=== PATIENT | female | born 1990 | race Hispanic/Latino ===

== ENCOUNTER 2018-04-27 18:07 | Emergency (ER) | payer OTHER ==
[2018-04-27 18:40] VITALS: RESP 18
[2018-04-27] MEDS: Sodium Chloride 0.9% 1,000 ML IV STA (20:06)
[2018-04-27 20:20] LABS: BASO % 0.2 % (0.0-2.0); EOS # 0.1 K/uL (0.0-0.7); LYMPH # 0.3 K/uL (1.0-4.3); LYMPH % 3.8 % (20.0-40.0); MEAN CORPUSCULAR HEMOGLOBIN 31.2 pg (27.0-31.0); MEAN CORPUSCULAR HGB CONC 33.5 g/dL (33.0-37.0); MEAN PLATELET VOLUME 9.4 fl (7.2-11.7); MONO # 0.3 K/uL (0.0-0.8); NEUT # 8.4 K/uL (1.8-7.0); PLATELET COUNT 198 K/uL (130-400); RBC 4.82 Mil/uL (3.80-5.20); RED CELL DISTRIBUTION WIDTH 12.6 % (11.5-14.5); WHITE BLOOD COUNT 9.1 K/uL (4.8-10.8)
[2018-04-27 20:41] LABS: ALB/GLOB RATIO 1.3 (1.0-2.1); ALBUMIN 4.5 g/dL (3.5-5.0); ALT/SGPT 12 U/L (9-52); AST/SGOT 28 U/L (14-36); BLOOD UREA NITROGEN 14 mg/dl (7-17); CALCIUM 9.4 mg/dL (8.4-10.2); GFR NON-AFRICAN AMERICAN > 60; LIPASE 104 U/L (23-300)
--- NOTE | 2018-04-27 21:14 | ED PDOC ---
HPI: Abdomen Time Seen by Provider: 04/27/18 19:19 Chief Complaint (Nursing): Abdominal Pain Chief Complaint (Provider): Abdominal Pain History Per: Patient History/Exam Limitations: no limitations Onset/Duration Of Symptoms: Hrs Current Symptoms Are (Timing): Still Present Additional Complaint(s): 27 y/o female with no significant PMHx presents to the ED for evaluation of vomiting and diarrhea since 7 AM this morning. Patient describes vomiting as yellow/green in color and is non-bloody. Patient notes last episode of vomiting was at 3:30 PM today and is associated with multiple episodes of watery, non- bloody diarrhea, severe abdominal cramping, chills, malaise, fatigue and body aches. Patient reports her boyfriend is sick with the same symptoms. However further states that symptoms are not as strong and that he is able to tolerate fluids. Otherwise, patient denies any recent travel or antibiotic use. PMD: no provider Past Medical History Reviewed: Historical Data, Nursing Documentation, Vital Signs Vital Signs: Last Vital Signs Temp 100.4 F H 04/27/18 18:37 Pulse 116 H 04/27/18 18:37 Resp 18 04/27/18 18:37 BP 116/73 04/27/18 18:37 Pulse Ox 99 04/27/18 18:37 - Medical History PMH: No Chronic Diseases - Surgical History Other surgeries: Nasal Septum - Family History Family History: States: No Known Family Hx - Social History Current smoker - smoking cessation education provided: No - Home Medications Home Medications: Ambulatory Orders Medication Instructions Recorded Dicyclomine [Bentyl] 20 mg PO QID PRN #20 tab 04/27/18 Ondansetron ODT [Zofran ODT] 1 odt PO Q6 PRN #20 odt 04/27/18 - Allergies Allergies/Adverse Reactions: Allergies Allergy/AdvReac Type Severity Reaction Status Date / Time No Known Allergies Allergy Verified 04/27/18 18:40 Review of Systems ROS Statement: Except As Marked, All Systems Reviewed And Found Negative (as per HPI) Constitutional: Positive for: Chills, Malaise, Other (fatigue and body aches) Gastrointestinal: Positive for: Vomiting, Abdominal Pain, Diarrhea Physical Exam - Reviewed Nursing Documentation Reviewed: Yes Vital Signs Reviewed: Yes - Physical Exam Appears: Positive for: In Acute Distress (tired and in somewhat painful distress) Head Exam: Positive for: ATRAUMATIC, NORMOCEPHALIC Skin: Positive for: Warm, Dry Eye Exam: Positive for: EOMI, PERRL ENT: Positive for: Other (tachy mucous membranes) Neck: Positive for: Painless ROM, Supple Cardiovascular/Chest: Positive for: Regular Rate, Rhythm. Negative for: Murmur Respiratory: Positive for: Normal Breath Sounds. Negative for: Respiratory Distress Gastrointestinal/Abdominal: Positive for: Soft, Tenderness (diffuse tenderness). Negative for: Mass, Guarding, Rebound Back: Positive for: Normal Inspection. Negative for: Decreased ROM Extremity: Positive for: Normal ROM. Negative for: Deformity Lymphatic: Negative for: Adenopathy Neurologic/Psych: Positive for: Alert. Negative for: Motor/Sensory Deficits - Laboratory Results Result Diagrams: 04/27/18 20:10 04/27/18 20:10 Lab Results: Total Bilirubin 0.8 mg/dl (0.2-1.3) 04/27/18 20:10 AST 28 U/L (14-36) 04/27/18 20:10 ALT 12 U/L (9-52) 04/27/18 20:10 Alkaline Phosphatase 59 U/L (38-126) 04/27/18 20:10 Total Protein 8.1 G/DL (6.3-8.2) 04/27/18 20:10 Albumin 4.5 g/dL (3.5-5.0) 04/27/18 20:10 Globulin 3.5 gm/dL (2.2-3.9) 04/27/18 20:10 Albumin/Globulin Ratio 1.3 (1.0-2.1) 04/27/18 20:10 Lipase 104 U/L (23-300) 04/27/18 20:10 - ECG O2 Sat by Pulse Oximetry: 99 (RA) Pulse Ox Interpretation: Normal Medical Decision Making Medical Decision Making: Time: 1930 Impression: vomiting and diarrhea Differentials include but not limited to dehydration, electrolyte abnormality and gastroentertitis. Plan: -- CMP -- Lipase -- Magnesium -- Phosphorus -- ED Urine Dipstick -- ED Urine -- CBC with Differentials -- Bentyl 20 mg PO -- Dextrose 5%-0.9% NS IV 100 mls/hr -- Sodium Chloride IV 1000 mls/hr -- Toradol 15 mg IVP -- Zofran Inj 8 mg IV -- IV Insertion Labs demonstrate no emergently significant abnormalities Udip with ketones 10p Pt feeling better, no episodes of vomiting in ER, and tolerated fluid PO. DW pt findings and plan of care. Scribe Attestation: Documented by Edwin Ann, acting as a scribe for Lisa De Souza MD. Provider Scribe Attestation: All medical record entries made by the Scribe were at my direction and personally dictated by me. I have reviewed the chart and agree that the record accurately reflects my personal performance of the history, physical exam, medical decision making, and the department course for this patient. I have also personally directed, reviewed, and agree with the discharge instructions and disposition. Disposition - Clinical Impression Clinical Impression: Vomiting and diarrhea, Dehydration Counseled Patient/Family Regarding: Studies Performed, Diagnosis - Disposition Referrals: [facility] [Outside] Disposition: Routine/Home Disposition Time: 22:10 Condition: IMPROVED Additional Instructions: DRINK PLENTY OF HYDRATING FLUIDS AND REST. START BLAND DIET TOMORROW MORNING. FOLLOWUP WITH YOUR PMD OR [facility] IN 24-48 HOURS FOR REEVALUATION. REBECCA ROSALES, thank you for letting us take care of you today. Your provider was Lisa De Souza MD and you were treated for vomiting and diarrhea. The emergency medical care you received today was directed at your acute symptoms. If you were prescribed any medication, please fill it and take as directed. It may take several days for your symptoms to resolve. Return to the Emergency Department if your symptoms worsen, do not improve, or if you have any other problems. Please contact your doctor or call one of the physicians/clinics you have been referred to that are listed on the Patient Visit Information form that is inc luded in your discharge packet. Bring any paperwork you were given at discharge with you along with any medications you are taking to your follow up visit. Our treatment cannot replace ongoing medical care by a primary care provider outside of the emergency department. Thank you for allowing the [facility] team to be part of your care today. If you had a blood, urine, or wound culture: It will take several days for the results, if any change in treatment is needed we will contact you. Prescriptions: Dicyclomine [Bentyl] 20 mg PO QID PRN #20 tab PRN Reason: abdominal pain Ondansetron ODT [Zofran ODT] 1 odt PO Q6 PRN #20 odt PRN Reason: Nausea/Vomiting Instructions: Dehydration, Adult (DC), Viral Gastroenteritis, Adult (DC) Forms: [employer] ([place]), [facility] ED School/Work Excuse
[2018-04-27 22:14] LABS: BANDS 4 % (0-2); EOSINOPHIL 1 % (0-7); LYMPHOCYTE 5 % (20-50); MONOCYTE 8 % (0-10); NEUTROPHIL 82 % (42-75); PLATELET ESTIMATE NORMAL (NORMAL); TOTAL CELLS COUNTED 100
[2018-04-27 22:42] VITALS: BP 99/60; PULSE 89; TEMP 100.6
[2018-04-27 22:55] VITALS: O2SAT 99
== END 2018-04-27 23:05 | disposition home or self-care (01) ==
LOC: H.ER 18:07
DX: E86.0 Dehydration (principal); R11.10 Vomiting, unspecified; R19.7 Diarrhea, unspecified
CPT/HCPCS: 80053; 81025; 83690; 83735; 84100; 85025; 96361; 96374; 96375; 99284; J1885; J2405; J7030; J7042